=== PATIENT | male | born 1990 | race Caucasian/White ===

== ENCOUNTER 2024-11-23 18:12 | Emergency (ER) | payer BC ==
[2024-11-23] MEDS ORDERED: HYDROCODONE/APAP 7.5/325 MG TAB ONE (18:50)
[2024-11-23] MEDS ORDERED: IBUPROFEN 400 MG TAB ONE (18:50)
--- NOTE | 2024-11-23 19:45 | RAD REPORT ---
EXAMINATION: XR RIGHT KNEE CLINICAL INDICATION: Male, 34 years old. Pain;Swelling TECHNIQUE: Multiple views of the right knee were obtained. COMPARISON: No prior exam. FINDINGS: Small/moderate suprapatellar joint effusion. No acute fracture or dislocation.
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
[2024-11-23 20:48] VITALS: BP 131/81; TEMP 98; O2SAT 100
== END 2024-11-23 20:43 | disposition home or self-care (01) ==
LOC: ER 18:12
DX: M25.461 Effusion, right knee (principal)
CPT/HCPCS: 99284